=== PATIENT | male | born 1965 | race American Indian/Alaskan Native ===

== ENCOUNTER 2019-06-30 10:08 | Outpatient (CLI) | payer OTHER ==
--- NOTE | 2019-06-30 11:04 | XRay Report ---
RIGHT KNEE HISTORY: Pain. COMPARISON: None. TECHNIQUE: 2 views of the right knee obtained. FINDINGS: Bones: No fracture or dislocation. The knee is rotated on the AP view. Joint spaces: Mild narrowing of the medial and lateral joint spaces with small osteophytes. Small pat ellofemoral osteophytes. Soft tissues: No significant abnormality. Additional findings: No joint effusion. IMPRESSION: 1. Moderate osteoarthritis. 2. No acute findings. Signer Name: Bala Dunne MD Signed: 06/30/2019 10:59 AM Workstation Name: [id number]
== END 2019-06-30 10:09 | disposition home or self-care (01) ==
LOC: XRAY 10:08
PROVIDERS: ATTEND Internal Medicine
DX: M17.11 Unilateral primary osteoarthritis, right knee (principal); E11.9 Type 2 diabetes mellitus without complications; I10 Essential (primary) hypertension